=== PATIENT | male | born 1990 | race Asian ===

== ENCOUNTER 2018-11-29 14:30 | Outpatient (CLI) | payer OTHER ==
--- NOTE | 2018-11-29 16:02 | MRI Report ---
Reason: PAIN IN LEFT ANKLE AND JOINTS OF LEFT FOOT Procedure Date: 11/29/2018 Accession Number: [id number] / [id number] Procedure: MRI - Ankle LT W/O CPT Code: FULL RESULT: EXAM: LEFT ANKLE/HINDFOOT MRI WITHOUT CONTRAST EXAM DATE: 11/29/2018 03:32 PM. CLINICAL HISTORY: Left ankle and foot pain. COMPARISON: None. TECHNIQUE: Multiplanar, multisequence T1-weighted and fluid-sensitive sequences of the ankle/hindfoot without contrast. Other: None. FINDINGS: Bones: No fractures or subluxations. No marrow edema. No bone lesions. Articular Cartilage: Unremarkable. Ligaments: The anterior and posterior tibiofibular, anterior and posterior talofibular, and calcaneofibular ligaments are intact. The deep and superficial deltoid and spring ligaments are intact. Anterior Tendons: The tibialis anterior, extensor hallucis longus, and extensor digitorum longus tendons are unremarkable. Medial Tendons: The tibialis posterior, flexor digitorum longus, and flexor hallucis longus tendons are unremarkable. Lateral Tendons: The peroneus brevis and longus are unremarkable. Achilles Tendon: The Achilles tendon is unremarkable. Musculature: No edema or fatty atrophy. Other: Small joint effusion. The contents of the sinus tarsi and tarsal tunnel are unremarkable. No plantar fasciitis. The subcutaneous tissues are unremarkable. IMPRESSION: 1. Small joint effusion. 2. No other significant abnormality. RADIA
== END 2018-11-29 14:31 | disposition home or self-care (01) ==
LOC: DI 14:30
PROVIDERS: ATTEND Orthopaedic Surgery
DX: M25.472 Effusion, left ankle (principal); M25.572 Pain in left ankle and joints of left foot

== ENCOUNTER 2018-12-09 10:04 | Outpatient (CLI) | payer OTHER ==
[2018-12-09] MEDS ORDERED: GADOBUTROL 10 MMOL/10 ML VIAL ONE (10:35)
[2018-12-09] MEDS ORDERED: GADOBUTROL 10 MMOL/10 ML VIAL IVP ONE (11:31)
--- NOTE | 2018-12-13 11:02 | MRI Report ---
Reason: LT ANKLE PAIN, LT FOOT PAIN Procedure Date: 12/09/2018 Accession Number: [id number] / [id number] Procedure: MRI - Ankle LT W/WO CPT Code: FULL RESULT: EXAM: LEFT MIDFOOT MRI WITHOUT AND WITH CONTRAST EXAM DATE: 12/09/2018 02:07 PM. CLINICAL HISTORY: Left ankle pain, left foot pain. COMPARISON: ANKLE LT W/O 11/29/2018 3:12 PM. TECHNIQUE: Multiplanar, multisequence T1-weighted and fluid-sensitive sequences of the midfoot before and after administration of intravenous contrast. IV contrast: 10 mL of Gadavist.. Other: None. FINDINGS: Bones: No fractures or subluxations. No marrow edema or abnormal enhancement. No bone lesions. Articular Cartilage: The ankle joint effusion is still visible. Ligaments: The visualized intertarsal, intermetatarsal, and tarsometatarsal ligaments are intact. This includes the Lisfranc ligament. The visualized collateral ligaments are intact. Tendons: The flexor and extensor tendons are unremarkable. Musculature: No edema or fatty atrophy. Other: The visualized portion of the tarsal tunnel is unremarkable. No intermetatarsal bursitis. The subcutaneous tissues are unremarkable. No abscess or cellulitis. IMPRESSION: 1. Ankle joint effusion as on the prior study. 2. Bony alignment, ligaments and tendons appear unremarkable. RADIA
== END 2018-12-09 10:05 | disposition home or self-care (01) ==
LOC: DI 10:04
PROVIDERS: ATTEND Orthopaedic Surgery
DX: M25.572 Pain in left ankle and joints of left foot (principal); M25.472 Effusion, left ankle
CPT/HCPCS: 73723; A9585

== ENCOUNTER 2021-03-11 08:00 | Outpatient (CLI) | payer OTHER | END 2021-03-11 23:59 | LOC: LAB.N 08:00 | PROVIDERS: ATTEND Family Medicine | DX: U07.1 COVID-19 (principal) ==

== ENCOUNTER 2023-04-21 08:41 | Emergency (ER) | payer OTHER ==
[2023-04-21] MEDS: lidocaine 1% 20 ML MDV SUBQ ONE (11:18)
--- NOTE | 2023-04-21 11:57 | ED Physician Documentation ---
History of Present Illness - Stated complaint Stated Complaint: GI PX - Chief complaint Chief Complaint: General - History obtained from History obtained from: Patient - Additonal information Additional information: The patient comes to the emergency department chief complaint of perianal pain. This is been going on for about the last 4 days and he feels "a lump" around his anal area. The patient denies any fevers or chills. No drainage. Patient states his had this before but is usually not as bad. He has been using some antihemorrhoidal cream at home but it is not helping. He is also been trying to take ibuprofen. He is otherwise healthy. He states he is not chronically constipated but does do some heavy weight lifting which he lasted 2 days before the symptoms started. PD PAST MEDICAL HISTORY - Past Medical History Past Medical History: No - Past Surgical History Past Surgical History: No - Present Medications Home Medications: Ambulatory Orders Medication Instructions Recorded Confirmed Hydrocortisone Supp [Anusol-Hc] 25 mg RC BID PRN #12 supp 04/21/23 traMADol [Ultram] 50 mg PO Q4-6H PRN #15 tablet 04/21/23 - Allergies Allergies/Adverse Reactions: Allergies Allergy/AdvReac Type Severity Reaction Status Date / Time acetaminophen [From Tylenol] Allergy Respiratory Verified 04/21/23 09:01 - Social History Does the pt smoke?: No Smoking Status: Never smoker Does the pt drink ETOH?: No Does the pt have substance abuse?: No - Immunizations Immunizations are current?: Yes - POLST Patient has POLST: No PD ED PE NORMAL - Vitals Vital signs reviewed: Yes - General General: Alert and oriented X 3, No acute distress, Well developed/nourished - HEENT HEENT: Atraumatic, PERRL, EOMI, Moist mucous membranes - Neck Neck: Supple, no meningeal sign - Respiratory Respiratory: No respiratory distress - Rectal Rectal: Other (Thrombosed external hemorrhoid adjacent to the anus. No mass on digital rectal exam. No extension of edema, induration, fluctuance, or erythema to surrounding tissues.) - Derm Derm: Warm and dry - Extremities Extremities: No deformity - Neuro Neuro: Alert and oriented X 3 - Psych Psych: Normal mood, Normal affect Results - Vitals Vitals: Vital Signs - 24 hr 04/21/23 08:58 Temperature 36.4 C L Heart Rate 116 H Respiratory 20 Rate Blood Pressure 135/105 H O2 Saturation 99 Oxygen O2 Source Room air PD Medical Decision Making - ED course Complexity details: considered differential, d/w patient ED course: I discussed with the patient that his pain is stemming from a thrombosed hemorrhoid. Although this is uncomfortable, I have discussed with the patient that it is not an emergent or dangerous condition and will ultimately resolve on its own. I encouraged [place] have also given him the contact information for surgical clinic if he thinks he would like to talk to them about hemorrhoidectomy. Patient has been treated symptomatically here in the emergency department as he states his can give him a ride home. Departure - Departure Disposition: Home, Self Care Clinical Impression: Thrombosed external hemorrhoid Condition: Stable Instructions: ED Hemorrhoids Follow-Up: Moreno Stratton MD [Provider Admit Priv/Credential] - Prescriptions: Hydrocortisone Supp [Anusol-Hc] 25 mg RC BID PRN #12 supp PRN Reason: Analgesia traMADol [Ultram] 50 mg PO Q4-6H PRN #15 tablet PRN Reason: Pain 5-7 Comments: The painful lump next to your anus is consistent with a hemorrhoid that is thrombosed, or has formed a clot in it. Hemorrhoids are very common and sometimes can flareup but usually flareups go away on their own. You been pre scribed a suppository with a steroid in it that will help to bring some of the inflammation down. Pain medication has also been prescribed. [place] You may also follow-up with the surgeons if you wish to discuss having hemorrhoidectomy, though this should generally be a last resort. Your prescriptions have been electronically transmitted to the [facility] pharmacy in [place]. Forms: PCP List, Activity restrictions
[2023-04-21] MEDS: KETOROLAC 60 MG/2 ML VIAL IM STA (12:01)
[2023-04-21] MEDS: oxyCODONE 5 MG TABLET PO STA (12:02)
[2023-04-21 12:45] VITALS: BP 122/78; O2SAT 98
== END 2023-04-21 12:39 | disposition home or self-care (01) ==
LOC: ED 08:41
DX: K64.5 Perianal venous thrombosis (principal)
CPT/HCPCS: 96372; 99283; A9270; 80053; 83690; 85025